=== PATIENT | female | born 1965 | race Caucasian/White ===

== ENCOUNTER 2017-08-08 13:50 | Emergency (ER) | payer BC ==
[2017-08-08 14:26] VITALS: BP 124/86
--- NOTE | 2017-08-08 15:07 | UC ---
Respiratory Complaint HPI - HPI Summary HPI Summary: Pt presents with complaint of 3 weeks of sx. Started with sinus congestion and ear pain. Pt states took decongestant and ibuprofen. Pt states x 1 week with cough, yellow sputum and fatigue. Pt denies fevers (99.1) and chills. Pt has been taking po, decreased appetite. No cavanaugh, vision changes. no OTC meds since yesterday. Pt states she is on Embrel for RA. Pt does smoke tobacco. + sick contact at work and home Pt's medications reviewed this visit - History of Current Complaint Chief Complaint: UCRespiratory Stated Complaint: COUGH Time Seen by Provider: 08/08/17 14:37 Hx Obtained From: Patient Hx Last Menstrual Period: 03/01/16 Onset/Duration: Gradual Onset, Lasting Weeks Timing: Constant Severity Initially: Moderate Character: Cough: Nonproductive Associated Signs And Symptoms: Positive: Fever, URI, Nasal Congestion, Sinus Discomfort - Allergies/Home Medications Allergies/Adverse Reactions: Allergies Allergy/AdvReac Type Severity Reaction Status Date / Time Sulfa Antibiotics Allergy Intermediate Hives Verified 08/08/17 14:17 Methotrexate Allergy Unknown Unknown Verified 08/08/17 14:17 Reaction Details Home Medications: Home Medications Fluticasone-Salmeterol 250-50* [Advair Diskus 250-50*] 1 puff INH BID 08/08/17 [ History Confirmed 08/08/17] PMH/Surg Hx/FS Hx/Imm Hx Previously Healthy: Yes - RA - on Embrel - Surgical History Surgical History: Yes Surgery Procedure, Year, and Place: 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 TUBAL LIGATION - Family History Known Family History: Positive: Hypertension - Social History Alcohol Use: Occasionally Substance Use Type: None Smoking Status (MU): Heavy Every Day Tobacco Smoker Type: Cigarettes Amount Used/How Often: 1/2 PPD - Immunization History Most Recent Influenza Vaccination: FALL 2016 Most Recent Pneumonia Vaccination: THREE YEARS AGO Review of Systems Constitutional: Fever - 99.1 Skin: Negative Eyes: Negative ENT: Nasal Discharge, Sinus Congestion Respiratory: Cough Cardiovascular: Negative All Other Systems Reviewed And Are Negative: Yes Physical Exam Triage Information Reviewed: Yes Appearance: Well-Appearing, No Pain Distress, Well-Nourished Vital Signs: Initial Vital Signs Temp 98.1 F 08/08/17 14:19 Pulse 66 08/08/17 14:19 Resp 16 08/08/17 14:19 BP 124/86 08/08/17 14:19 Pulse Ox 96 08/08/17 14:19 Vital Signs Reviewed: Yes Eye Exam: Normal Eyes: Positive: Conjunctiva Clear ENT Exam: Normal ENT: Positive: Normal ENT inspection, Hearing grossly normal, Pharynx normal, Nasal congestion, Sinus tenderness Dental Exam: Normal Neck exam: Normal Neck: Positive: Supple, Nontender, No Lymphadenopathy Respiratory: Positive: Chest non-tender, Normal breath sounds, No respiratory distress, No accessory muscle use, Wheezing, Other: - intermittent few scattered wheeze, no rhonci Cardiovascular Exam: Normal Cardiovascular: Positive: RRR, No Murmur Abdominal Exam: Normal Abdomen Description: Positive: Nontender, No Organomegaly, Soft Bowel Sounds: Positive: Present Musculoskeletal Exam: Normal Neurological Exam: Normal Neurological: Positive: Alert Psychological Exam: Normal Skin Exam: Normal UC Diagnostic Evaluation - Laboratory O2 Sat by Pulse Oximetry: 96 - Radiology Xray Interpretation: Positive (See Comments) - Order Information: CHEST PA LAT 2 VWS Radiology Interpretation Completed By: ED Physician, Radiologist Respiratory Course/Dx - Course Course Of Treatment: Pt presents with sinus and ear congestion that has now settled into chest. Pt with coarse cough, scattered wheeze. + tobacco use. Pt is on immunosuppressants. will check CXR and flu swab. anticipate abx. mdi. secretion precaution - Differential Dx/Diagnosis Provider Diagnoses: acute bronchitis Discharge - Discharge Plan Condition: Stable Disposition: HOME Prescriptions: Albuterol HFA INHALER* [Ventolin HFA Inhaler*] 1 puff INH Q4H PRN #1 mdi PRN Reason: wheeze Amoxicillin/Clavulanate TAB* [Augmentin TAB 875*] 875 mg PO BID #20 tab Patient Education Materials: Acute Bronchitis (ED) Forms: *Work Release Referrals: Lu Blake MD [Primary Care Provider] - Additional Instructions: - Stay well hydrated. Drink plenty of non-alcoholic, non-caffinated beverages. - After you have been on antibiotics for 2 days - change your toothbrush and your pillowcase. These infections are spread by secretions - do NOT share eating or drinking utensils - clean items you share with other people such as cell phones, computer mouse, TV remote, computer tablets, etc - Alternate ibuprofen (Advil, Motrin) 600mg and Tylenol every 3 hours for pain or fever. Take with food. Do NOT take for more than 4-5 days. - Use your inhaler, 2 puffs every 4 hours today and tomorrow. Then every 4 hours as needed. - Call your doctor to a follow-up appointment. Call your doctor or return with questions or concerns
--- NOTE | 2017-08-08 15:45 | RAD ---
INDICATION: Productive cough. Immunocompromised. History of tobacco use. COMPARISON: June 08, 2012 TECHNIQUE: Dual energy PA and routine lateral views of the chest were obtained. REPORT: Elevated lung volumes and both diffuse mild prominence of the interstitial markings and patchy rarefaction of the mid to upper lung zone interstitial markings. No focal pulmonary lesion, compelling alveolar consolidation, pleural effusion, pneumothorax. The heart, pulmonary vasculature, and mediastinal contours are unremarkable. Unremarkable soft tissue contours and osseous structures. IMPRESSION: Stigmata of obstructive lung disease. No acute pulmonary or cardiac process evident.
== END 2017-08-08 15:45 | disposition home or self-care (01) ==
LOC: UCCORT 13:50
DX: J20.9 Acute bronchitis, unspecified (principal); F17.210 Nicotine dependence, cigarettes, uncomplicated
CPT/HCPCS: 71020; 87502; 99212; G0463

== ENCOUNTER 2018-06-26 08:06 | Emergency (ER) | payer BC ==
--- OUTSIDE RECORDS SUMMARY | 2018-06-26 08:24 | XMS REPORT ---
:1965 External Reference #:[id number] Author Organization [facility] Address [address] [place] [address] Phone [phone] Care Team Providers Name Role Phone Lu Blake MD Primary Care Physician Unavailable Payers Type Date Identification Numbers Payment Provider Subscriber Commercial Policy Number: [id number] [employer]ets Selam Das PayID: [id number] [address] [address] [place] [address] Problems Date Description Provider Status Onset: 06/09/2012 Rheumatoid arthritis Josemanuel Jonas M.D. Active Onset: 06/09/2012 Medications Skilled Nursing (Current) Use Josemanuel Jonas M.D. Active Encounter Onset: 06/09/2012 Chronic pain syndrome Josemanuel Jonas M.D. Active Onset: 08/23/2014 Taking medication BETY Tilley Active Social History Type Date Description Comments Smoking Patient is a current smoker, smokes every day Smoking Light tobacco smoker (10 or fewer cigarettes/day) 1/2 ppd for 25 years Allergies, Adverse Reactions, Alerts Date Description Reaction Status Severity Comments 11/05/2010 Sulfa Allergic asthma, Urticaria active Moderate to Severe 02/22/2011 Methotrexate abnormal liver test even active on 7.5/week Medications Medication Date Status Form Strength Qnty SIG Indications Ordering Provider Enbrel 03/21/ Active Solution 50mg/ml 3.920 inject M05.79 Zsofia Sureclick 2014 Auto-Injec ml subcutaneously Bryan, t 50mg every GERIATRICS PHYSICIAN week, monthly supply please Tramadol HCL 11/05/ Active Tablets 50mg 30tab 1 tab po hs G89.4 Zsofia 2010 s Bryan, GERIATRICS PHYSICIAN M05.79 Multi Vitamin Active Tablets 1 po qd Unknown With Calcium Montelukast Active Tablets 10mg 90ta 1 po qd Unknown Sodium bs Albuterol Sulfate Active Powder puff every 6 Unknown hours as needed Advair Diskus Active Aerosol 250- Inhale One Unknown 50mc puff By g/Do Mouth Twice se A Day Prednisone 08/11/2017 - Hx Tablets 10mg 17ta 3 tabs po Zsofia 06/05/2018 bs daily for 3 Bryan, GERIATRICS PHYSICIAN days, 2 tabs for 3 days, 1 tab for 2 days then d/c. Ketoconazole 01/27/2016 - Hx Cream 2% 15gm use on B37. Zsofia 02/10/2017 lesions 2x 2 Bryan, GERIATRICS PHYSICIAN daily (issue resolved and not using at this time) Gabapentin 06/23/2015 - Hx Capsules 100m 14ca 1 tab by L28. Zsofia 09/22/2015 g ps mouth at 0 Bryan, GERIATRICS PHYSICIAN bedtime Enbrel 08/23/2014 - Hx Soln Prefill 50mg 50mg sq 714. Zsofia 08/23/2014 Syringe /ml every week 0 Bryan, GERIATRICS PHYSICIAN V58.69 Enbrel 08/23/2014 - Hx Solution 50mg/ml 3.920ml inject 714.0 Zsofia Sureclick 03/21/2015 Auto-Inject subcutaneously Bryan, 50mg every week GERIATRICS PHYSICIAN pen V58.69 Leflunomide 06/13/2014 - Hx Tablets 20mg 90tabs 1 by mouth 714.0 Zsofia 09/04/2014 every day on Bryan, GERIATRICS PHYSICIAN Hold Levaquin 06/07/2013 - Hx Tablets 250mg 10tabs Take 1 tab Zsofia 08/23/2013 po qday for Bryan, GERIATRICS PHYSICIAN 10 days Nystatin 05/30/2013 - Hx Suspension [id number] 473ml 10 ml bid; 112.0 Zsofia 08/23/2013 it/ML swish and Bryan, GERIATRICS PHYSICIAN swash. continue 2 days after symptoms resolved Voltaren 03/05/2013 - Hx Gel 1% 1tubes apply to M05.79 Zsofia 09/22/2015 affected Bryan, GERIATRICS PHYSICIAN area bid, prn Nabumetone 03/05/2013 - Hx Tablets 750mg 60tabs Take One M05.79 Zsofia 04/30/2016 Tablet By BETY Adams Mouth Twice A Day Meloxicam 10/17/2012 - Hx Tablets 15mg 30tabs Take One 714.0 Josemanuel 03/05/2013 Tablet By Edie Jonas Mouth Every Day 338.4 Levaquin 06/14/2012 - Hx Tablets 250mg 10tabs one by mouth [place] 10/23/2012 daily for 10 days Edie Jonas Piroxicam 12/08/2011 - Hx Capsules 20mg 30caps po daily with [place] 10/17/2012 food Edie Jonas Prednisone 06/24/2011 - Hx Tablets 5mg 30tabs 1 PO qd [place] 01/27/2012 Edie Jonas Oxaprozin 06/24/2011 - Hx Tablets 600mg 60tabs 1 tab po bid prn [place] 06/09/2012 Edie Jonas Hydroxyzine 06/24/2011 - Hx Tablets 25mg 30tabs 1 every 4 hours Zsofia HCL 01/27/2016 as needed BETY Adams Enbrel 06/24/2011 - Hx Solution 50mg/ml 4units inject the 71 Zsofia Sureclick 08/23/2014 Auto-Inject contents of one 4. nitin Adams (50 mg) 0 BETY subcutaneously once per week as directed by your physician. single - use device. V58.69 Humira Pen 12/29/2010 - Hx Kit 40mg/0.8ML 2units sq every Josemanuel 07/15/2011 other Edie Jonas week Diclofenac Sodium 12/28/2010 - Hx Tablets DR 75mg 60tabs 1 po bid [place] 06/24/2011 Edie Jonas Oxaprozin 11/10/2010 - Hx Tablets 600mg 60tabs Take One Josemanuel 12/28/2010 Tablet By Edie Jonas Mouth Twice A Day Methotrexate 11/05/2010 - Hx Tablets 2.5mg 24tabs 3 tabs 1x Josemanuel 11/05/2010 per week Edie Jonas Methotrexate 11/05/2010 - Hx Tablets 2.5mg 20tabs Take 3 71 [place] 02/22/2011 Tablets 4. Edie Jonas By Mouth 0 Once Weekly Folic Acid 11/05/2010 - Hx Tablets 1mg 30tabs Take One Josemanuel 06/09/2012 Tablet By Edie Jonas Mouth Every Day Singulair - Hx Tablets 10mg 30tabs 1 po qd Unknown 07/15/2011 Azithromycin - Hx Tablets 500mg 7tabs 1 tab qd Unknown 06/09/2012 for 7 days Guaifenesin/Codei - Hx Syrup 100-10mg/5ML 6ounces 3 tsp po Unknown ne 06/09/2012 q 4 h prn Prednisone - Hx Tablets 10mg 30tabs 5tabx Unknown 05/30/2013 2days,4 [id number] s,1clde7x ays,1tabx day. Clarithromycin - Hx Tablets 500mg 28tabs 1 po bid Unknown 12/20/2013 Atrovent HFA - Hx Aerosol 17mcg/Act 12.900gm 2 puffs Unknown 12/20/2013 inhaled qid Prednisone - Hx Tablets 20mg 20tabs 1 tab po Unknown 12/20/2013 qd x 5 days Acidophilus - Hx Tablets every day Unknown 09/22/2015 Levaquin - Hx Tablets one by Unknown 03/21/2015 mouth daily for 10 days Immunizations CPT Code Status Date Vaccine Lot # [id number] Given 09/21/2016 Influenza Virus Vaccine, Quadrivalent, Split [id number] Virus, Im Use [id number] Given 12/18/2014 Pneumonia Vaccine [id number] Given 08/23/2014 Pneumococcal Conjugate Vaccine 13 Valent For [id number] Intramuscular Use 78657 Given 08/23/2014 Flu Vaccine Split Virus Preservative Free For [id number] Indiv 3Yr Older Vital Signs Date Vital Result Comment 06/05/2018 Height 64 inches 5'4" Weight 169.56 lb Heart Rate 64 /min BP Systolic Sitting 120 mmHg BP Diastolic Sitting 76 mmHg Pain Level 5 O2 % BldC Oximetry 98 % BMI (Body Mass Index) 29.1 kg/m2 05/17/2017 Height 64 inches 5'4" Weight 167.00 lb Heart Rate 58 /min BP Systolic Sitting 128 mmHg BP Diastolic Sitting 86 mmHg Respiratory Rate 14 /min Pain Level 0 BMI (Body Mass Index) 28.7 kg/m2 02/11/2017 Height 64 inches 5'4" Weight 168.50 lb Heart Rate 84 /min BP Systolic Sitting 116 mmHg BP Diastolic Sitting 86 mmHg Respiratory Rate 14 /min Body Temperature 98.9 F Pain Level 2 BMI (Body Mass Index) 28.9 kg/m2 09/21/2016 Height 64 inches 5'4" Weight 165.12 lb Heart Rate 88 /min BP Systolic Sitting 120 mmHg BP Diastolic Sitting 70 mmHg Respiratory Rate 14 /min Pain Level 0 BMI (Body Mass Index) 28.3 kg/m2 04/30/2016 Height 64 inches 5'4" Weight 165.38 lb Heart Rate 80 /min BP Systolic Sitting 126 mmHg BP Diastolic Sitting 84 mmHg Respiratory Rate 14 /min Body Temperature 98.3 F Pain Level 3 BMI (Body Mass Index) 28.4 kg/m2 01/27/2016 Height 64 inches 5'4" Weight 166.00 lb Heart Rate 88 /min BP Systolic Sitting 138 mmHg BP Diastolic Sitting 98 mmHg Body Temperature 98.7 F Pain Level 0 BMI (Body Mass Index) 28.5 kg/m2 09/22/2015 Weight 159.00 lb Heart Rate 80 /min 2 BP Systolic Sitting 106 mmHg BP Diastolic Sitting 70 mmHg O2 % BldC Oximetry 95 % 06/23/2015 Height 65.25 inches 5'5.25" Weight 161.12 lb Heart Rate 64 /min BP Systolic Sitting 110 mmHg BP Diastolic Sitting 80 mmHg Respiratory Rate 14 /min Body Temperature 97.9 F tympanic Pain Level 1 BMI (Body Mass Index) 26.6 kg/m2 03/21/2015 Height 65.25 inches 5'5.25" Weight 168.00 lb Heart Rate 84 /min BP Systolic Sitting 114 mmHg BP Diastolic Sitting 80 mmHg Pain Level 0 BMI (Body Mass Index) 27.7 kg/m2 12/18/2014 Height 65.25 inches 5'5.25" Weight 172.00 lb Heart Rate 84 /min BP Systolic Sitting 118 mmHg BP Diastolic Sitting 80 mmHg Pain Level 0 BMI (Body Mass Index) 28.4 kg/m2 08/23/2014 Height 65.25 inches 5'5.25" Weight 168.00 lb Heart Rate 76 /min BP Systolic Sitting 118 mmHg BP Diastolic Sitting 82 mmHg Pain Level 1 BMI (Body Mass Index) 27.7 kg/m2 06/13/2014 Height 65.25 inches 5'5.25" Weight 168.50 lb Heart Rate 66 /min BP Systolic Sitting 104 mmHg BP Diastolic Sitting 72 mmHg Pain Level 0 BMI (Body Mass Index) 27.8 kg/m2 04/30/2014 Heart Rate 60 /min BP Systolic Sitting 112 mmHg BP Diastolic Sitting 72 mmHg Pain Level 0 12/20/2013 Height 64.5 inches 5'4.50" Weight 170.50 lb Heart Rate 76 /min BP Systolic Sitting 110 mmHg BP Diastolic Sitting 88 mmHg BMI (Body Mass Index) 28.8 kg/m2 08/23/2013 Height 64.5 inches 5'4.50" Weight 164.00 lb Heart Rate 78 /min BP Systolic Sitting 105 mmHg BP Diastolic Sitting 78 mmHg BMI (Body Mass Index) 27.7 kg/m2 05/30/2013 Height 64.5 inches 5'4.50" Weight 171.00 lb Heart Rate 74 /min BP Systolic Sitting 100 mmHg BP Diastolic Sitting 78 mmHg BMI (Body Mass Index) 28.9 kg/m2 03/05/2013 Height 64.5 inches 5'4.50" Heart Rate 74 /min BP Systolic Sitting 106 mmHg BP Diastolic Sitting 66 mmHg 10/23/2012 Height 64.5 inches 5'4.50" Weight 165.00 lb Heart Rate 80 /min BP Systolic Sitting 127 mmHg BP Diastolic Sitting 64 mmHg BMI (Body Mass Index) 27.9 kg/m2 06/09/2012 Height 64.5 inches 5'4.50" Weight 164.00 lb Heart Rate 78 /min BP Systolic Sitting 128 mmHg BP Diastolic Sitting 78 mmHg BMI (Body Mass Index) 27.7 kg/m2 01/27/2012 Height 64.5 inches 5'4.50" Heart Rate 77 /min BP Systolic Sitting 123 mmHg BP Diastolic Sitting 73 mmHg 10/26/2011 Height 64.5 inches 5'4.50" Weight 165.00 lb Heart Rate 80 /min BP Systolic Sitting 119 mmHg BP Diastolic Sitting 64 mmHg BMI (Body Mass Index) 27.9 kg/m2 07/15/2011 Height 64.5 inches 5'4.50" Weight 166.00 lb Heart Rate 72 /min BP Systolic Sitting 108 mmHg L BP Diastolic Sitting 60 mmHg L BMI (Body Mass Index) 28.1 kg/m2 04/13/2011 Height 64.5 inches 5'4.50" Weight 164.00 lb BP Systolic 120 mmHg BP Diastolic 80 mmHg BMI (Body Mass Index) 27.7 kg/m2 02/22/2011 Height 64.5 inches 5'4.50" Weight 164.00 lb Heart Rate 76 /min BP Systolic 120 mmHg BP Diastolic 80 mmHg BMI (Body Mass Index) 27.7 kg/m2 12/28/2010 Height 64.5 inches 5'4.50" Weight 166.00 lb Heart Rate 76 /min BP Systolic 118 mmHg BP Diastolic 72 mmHg BMI (Body Mass Index) 28.1 kg/m2 11/05/2010 Height 64.5 inches 5'4.50" Weight 161.00 lb Heart Rate 80 /min BP Systolic 110 mmHg BP Diastolic 70 mmHg BMI (Body Mass Index) 27.2 kg/m2 Results Test Date Test Result H/L Range Note CBC Auto Diff 06/05/2018 White Blood Count 9.3 10^3/uL 3.5-10.8 Red Blood Count 4.30 10^6/uL 4.00-5.40 Hemoglobin 13.6 g/dL 12.0-16.0 Hematocrit 39 % 35-47 Mean Corpuscular Volume 92 fL 80-97 Mean Corpuscular Hemoglobin 32 pg High 27-31 Mean Corpuscular HGB Conc 35 g/dL 31-36 Red Cell Distribution Width 12 % 10.5-15 Platelet Count 252 10^3/uL 150-450 Mean Platelet Volume 9.8 um3 7.4-10.4 Abs Neutrophils 5.9 10^3/uL 1.5-7.7 Abs Lymphocytes 2.2 10^3/uL 1.0-4.8 Abs Monocytes 0.7 10^3/uL 0-0.8 Abs Eosinophils 0.3 10^3/uL 0-0.6 Abs Basophils 0.1 10^3/uL 0-0.2 Abs Nucleated RBC 0 10^3/uL Granulocyte % 64.2 % 38-83 Lymphocyte % 23.4 % Low 25-47 Monocyte % 7.8 % High 0-7 Eosinophil % 3.8 % 0-6 Basophil % 0.8 % 0-2 Nucleated Red Blood Cells % 0.1 Comp Metabolic Panel 06/05/2018 Sodium 138 mmol/L 135-145 Potassium 4.2 mmol/L 3.5-5.0 Chloride 104 mmol/L 101-111 Co2 Carbon Dioxide 27 mmol/L 22-32 Anion Gap 7 mmol/L 2-11 Glucose 148 mg/dL High 70-100 Blood Urea Nitrogen 13 mg/dL 6-24 Creatinine 0.70 mg/dL 0.51-0.95 BUN/Creatinine Ratio 18.6 8-20 Calcium 9.6 mg/dL 8.6-10.3 Total Protein 6.4 g/dL 6.4-8.9 Albumin 4.2 g/dL 3.2-5.2 Globulin 2.2 g/dL 2-4 Albumin/Globulin Ratio 1.9 1-3 Total Bilirubin 0.30 mg/dL 0.2-1.0 Alkaline Phosphatase 72 U/L 34-104 Alt 38 U/L 7-52 Ast 22 U/L 13-39 Egfr Non- 88.2 >60 Egfr 106.7 >60 1 Laboratory test finding 06/05/2018 C Reactive Protein 7.06 mg/L <8.01 2 Erythrocyte Sed Rate 24 mm/Hr 0-30 3 CBC Auto Diff 08/08/2017 White Blood Count 9.0 10^3/uL 3.5-10.8 Red Blood Count 4.38 10^6/uL 4.0-5.4 Hemoglobin 13.7 g/dL 12.0-16.0 Hematocrit 40 % 35-47 Mean Corpuscular Volume 92 fL 80-97 Mean Corpuscular Hemoglobin 31 pg 27-31 Mean Corpuscular HGB Conc 34 g/dL 31-36 Red Cell Distribution Width 12 % 10.5-15 Platelet Count 268 10^3/uL 150-450 Mean Platelet Volume 10 um3 7.4-10.4 Abs Neutrophils 5.9 10^3/uL 1.5-7.7 Abs Lymphocytes 2.2 10^3/uL 1.0-4.8 Abs Monocytes 0.7 10^3/uL 0-0.8 Abs Eosinophils 0.2 10^3/uL 0-0.6 Abs Basophils 0.1 10^3/uL 0-0.2 Abs Nucleated RBC 0.01 10^3/uL Granulocyte % 65.0 % 38-83 Lymphocyte % 24.2 % Low 25-47 Monocyte % 8.3 % 1-9 Eosinophil % 1.8 % 0-6 Basophil % 0.7 % 0-2 Nucleated Red Blood Cells % 0.1 Comp Metabolic Panel 08/08/2017 Sodium 139 mmol/L 133-145 Potassium 3.8 mmol/L 3.5-5.0 Chloride 103 mmol/L 101-111 Co2 Carbon Dioxide 29 mmol/L 22-32 Anion Gap 7 mmol/L 2-11 Glucose 112 mg/dL High 70-100 Blood Urea Nitrogen 13 mg/dL 6-24 Creatinine 0.85 mg/dL 0.51-0.95 BUN/Creatinine Ratio 15.3 8-20 Calcium 9.8 mg/dL 8.6-10.3 Total Protein 6.8 g/dL 6.4-8.9 Albumin 4.2 g/dL 3.2-5.2 Globulin 2.6 g/dL 2-4 Albumin/Globulin Ratio 1.6 1-3 Total Bilirubin 0.30 mg/dL 0.2-1.0 Alkaline Phosphatase 65 U/L 34-104 Alt 57 U/L High 7-52 Ast 34 U/L 13-39 Egfr Non- 70.8 >60 Egfr 91.0 >60 4 Laboratory test finding 08/08/2017 C Reactive Protein 6.84 mg/L High < 5.00 5 Erythrocyte Sed Rate 27 mm/Hr 0-30 6 CBC Auto Diff 05/06/2017 White Blood Count 9.7 10^3/uL 3.5-10.8 7 Red Blood Count 4.43 10^6/uL 4.0-5.4 7 Hemoglobin 14.1 g/dL 12.0-16.0 7 Hematocrit 41 % 35-47 7 Mean Corpuscular Volume 93 fL 80-97 7 Mean Corpuscular Hemoglobin 32 pg High 27-31 7 Mean Corpuscular HGB Conc 34 g/dL 31-36 7 Red Cell Distribution Width 12 % 10.5-15 7 Platelet Count 216 10^3/uL 150-450 7 Mean Platelet Volume 11 um3 High 7.4-10.4 7 Abs Neutrophils 6.1 10^3/uL 1.5-7.7 7 Abs Lymphocytes 2.3 10^3/uL 1.0-4.8 7 Abs Monocytes 0.9 10^3/uL High 0-0.8 7 Abs Eosinophils 0.3 10^3/uL 0-0.6 7 Abs Basophils 0.1 10^3/uL 0-0.2 7 Abs Nucleated RBC 0 10^3/uL 7 Granulocyte % 63.2 % 38-83 7 Lymphocyte % 24.2 % Low 25-47 7 Monocyte % 8.8 % 1-9 7 Eosinophil % 3.1 % 0-6 7 Basophil % 0.7 % 0-2 7 Nucleated Red Blood Cells % 0 7 Comp Metabolic Panel 05/06/2017 Sodium 135 mmol/L 133-145 7 Potassium 4.3 mmol/L 3.5-5.0 7 Chloride 103 mmol/L 101-111 7 Co2 Carbon Dioxide 26 mmol/L 22-32 7 Anion Gap 6 mmol/L 2-11 7 Glucose 140 mg/dL High 70-100 7 Blood Urea Nitrogen 16 mg/dL 6-24 7 Creatinine 0.73 mg/dL 0.51-0.95 7 BUN/Creatinine Ratio 21.9 High 8-20 7 Calcium 9.6 mg/dL 8.6-10.3 7 Total Protein 6.8 g/dL 6.4-8.9 7 Albumin 4.2 g/dL 3.2-5.2 7 Globulin 2.6 g/dL 2-4 7 Albumin/Globulin Ratio 1.6 1-3 7 Total Bilirubin 0.50 mg/dL 0.2-1.0 7 Alkaline Phosphatase 59 U/L 34-104 7 Alt 89 U/L High 7-52 7 Ast 39 U/L 13-39 7 Egfr Non- 84.4 >60 7 Egfr 108.5 >60 7, 8 Laboratory test finding 05/06/2017 C Reactive Protein 4.31 mg/L < 5.00 7 , 9 Erythrocyte Sed Rate 17 mm/Hr 0-30 7, 10 CBC W/Auto Diff 02/01/2017 White Blood Count 12.6 10^3/uL High 3.5-10.8 Red Blood Count 4.46 10^6/uL 4.0-5.4 Hemoglobin 13.8 g/dL 12.0-16.0 Hematocrit 41 % 35-47 Mean Corpuscular Volume 91 fL 80-97 Mean Corpuscular Hemoglobin 31 pg 27-31 Mean Corpuscular HGB Conc 34 g/dL 31-36 Red Cell Distribution Width 13 % 10.5-15 Platelet Count 219 10^3/uL 150-450 Mean Platelet Volume 11 um3 High 7.4-10.4 Abs Neutrophils 9.0 10^3/uL High 1.5-7.7 Abs Lymphocytes 2.3 10^3/uL 1.0-4.8 Abs Monocytes 0.9 10^3/uL High 0-0.8 Abs Eosinophils 0.3 10^3/uL 0-0.6 Abs Basophils 0.1 10^3/uL 0-0.2 Abs Nucleated RBC 0 10^3/uL Granulocyte % 71.9 % 38-83 Lymphocyte % 18.1 % Low 25-47 Monocyte % 6.9 % 1-9 Eosinophil % 2.1 % 0-6 Basophil % 1.0 % 0-2 Nucleated Red Blood Cells % 0 CMP Panel 02/01/2017 Sodium 135 mmol/L 133-145 Potassium 3.8 mmol/L 3.5-5.0 Chloride 102 mmol/L 101-111 Co2 Carbon Dioxide 25 mmol/L 22-32 Anion Gap 8 mmol/L 2-11 Glucose 153 mg/dL High 70-100 Blood Urea Nitrogen 14 mg/dL 6-24 Creatinine 0.63 mg/dL 0.51-0.95 BUN/Creatinine Ratio 22.2 High 8-20 Calcium 9.5 mg/dL 8.6-10.3 Total Protein 6.7 g/dL 6.4-8.9 Albumin 4.3 g/dL 3.2-5.2 Globulin 2.4 g/dL 2-4 Albumin/Globulin Ratio 1.8 1-3 Total Bilirubin 0.50 mg/dL 0.2-1.0 Alkaline Phosphatase 64 U/L 34-104 Alt 27 U/L 7-52 Ast 19 U/L 13-39 Egfr Non- 100.0 >60 Egfr 128.6 >60 11 Laboratory test finding 02/01/2017 C Reactive Protein 5.56 mg/L High < 5.00 12 Erythrocyte Sed Rate 17 mm/Hr 0-30 13 CBC Auto Diff 09/20/2016 White Blood Count 9.7 10^3/uL 3.5-10.8 Red Blood Count 4.60 10^6/uL 4.0-5.4 Hemoglobin 14.1 g/dL 12.0-16.0 Hematocrit 42 % 35-47 Mean Corpuscular Volume 91 fL 80-97 Mean Corpuscular Hemoglobin 31 pg 27-31 Mean Corpuscular HGB Conc 34 g/dL 31-36 Red Cell Distribution Width 12 % 10.5-15 Platelet Count 239 10^3/uL 150-450 Mean Platelet Volume 11 um3 High 7.4-10.4 Abs Neutrophils 5.5 10^3/uL 1.5-7.7 Abs Lymphocytes 3.0 10^3/uL 1.0-4.8 Abs Monocytes 0.8 10^3/uL 0-0.8 Abs Eosinophils 0.2 10^3/uL 0-0.6 Abs Basophils 0.1 10^3/uL 0-0.2 Abs Nucleated RBC 0.01 10^3/uL Granulocyte % 57.1 % 38-83 Lymphocyte % 30.7 % 25-47 Monocyte % 8.7 % 1-9 Eosinophil % 2.5 % 0-6 Basophil % 1.0 % 0-2 Nucleated Red Blood Cells % 0.1 Comp Metabolic Panel 09/20/2016 Sodium 136 mmol/L 133-145 Potassium 4.2 mmol/L 3.5-5.0 Chloride 102 mmol/L 101-111 Co2 Carbon Dioxide 28 mmol/L 22-32 Anion Gap 6 mmol/L 2-11 Glucose 95 mg/dL 70-100 Blood Urea Nitrogen 18 mg/dL 6-24 Creatinine 0.76 mg/dL 0.51-0.95 BUN/Creatinine Ratio 23.7 High 8-20 Calcium 10.1 mg/dL 8.6-10.3 Total Protein 7.0 g/dL 6.4-8.9 Albumin 4.6 g/dL 3.2-5.2 Globulin 2.4 g/dL 2-4 Albumin/Globulin Ratio 1.9 1-3 Total Bilirubin 0.50 mg/dL 0.2-1.0 Alkaline Phosphatase 59 U/L 34-104 Alt 79 U/L High 7-52 Ast 51 U/L High 13-39 Egfr Non- 80.6 >60 Egfr 103.6 >60 14 Laboratory test finding 09/20/2016 C Reactive Protein 4.77 mg/L < 5.00 15 Erythrocyte Sed Rate 15 mm/Hr 0-30 16 CBC W/Auto Diff 04/26/2016 White Blood Count 11.3 10^3/uL High 3.5-10.8 Red Blood Count 4.22 10^6/uL 4.0-5.4 Hemoglobin 13.2 g/dL 12.0-16.0 Hematocrit 39 % 35-47 Mean Corpuscular Volume 92 fL 80-97 Mean Corpuscular Hemoglobin 31 pg 27-31 Mean Corpuscular HGB Conc 34 g/dL 31-36 Red Cell Distribution Width 13 % 10.5-15 Platelet Count 288 10^3/uL 150-450 Mean Platelet Volume 11 um3 High 7.4-10.4 Abs Neutrophils 6.3 10^3/uL 1.5-7.7 Abs Lymphocytes 3.6 10^3/uL 1.0-4.8 Abs Monocytes 0.9 10^3/uL High 0-0.8 Abs Eosinophils 0.3 10^3/uL 0-0.6 Abs Basophils 0.1 10^3/uL 0-0.2 Abs Nucleated RBC 0.01 10^3/uL Granulocyte % 55.9 % 38-83 Lymphocyte % 31.8 % 25-47 Monocyte % 8.0 % 1-9 Eosinophil % 3.0 % 0-6 Basophil % 1.3 % 0-2 Nucleated Red Blood Cells % 0.1 CMP Panel 04/26/2016 Sodium 137 mmol/L 133-145 Potassium 3.6 mmol/L 3.5-5.0 Chloride 104 mmol/L 101-111 Co2 Carbon Dioxide 26 mmol/L 22-32 Anion Gap 7 mmol/L 2-11 Glucose 102 mg/dL High 70-100 Blood Urea Nitrogen 20 mg/dL 6-24 Creatinine 0.86 mg/dL 0.51-0.95 BUN/Creatinine Ratio 23.3 High 8-20 Calcium 9.6 mg/dL 8.6-10.3 Total Protein 6.6 g/dL 6.4-8.9 Albumin 4.2 g/dL 3.2-5.2 Globulin 2.4 g/dL 2-4 Albumin/Globulin Ratio 1.8 1-3 Total Bilirubin 0.20 mg/dL 0.2-1.0 Alkaline Phosphatase 69 U/L 34-104 Alt 35 U/L 7-52 Ast 23 U/L 13-39 Egfr Non- 70.1 >60 Egfr 90.2 >60 17 Laboratory test finding 04/26/2016 C Reactive Protein 2.20 mg/L < 5.00 18 Erythrocyte Sed Rate 12 mm/Hr 0-14 19 CBC Auto Diff 09/16/2015 White Blood Count 8.5 10^3/uL 3.5-10.8 Red Blood Count 4.51 10^6/uL 4.0-5.4 Hemoglobin 14.2 g/dL 12.0-16.0 Hematocrit 42 % 35-47 Mean Corpuscular Volume 93 fL 80-97 Mean Corpuscular Hemoglobin 31 pg 27-31 Mean Corpuscular HGB Conc 34 g/dL 31-36 Red Cell Distribution Width 12 % 10.5-15 Platelet Count 258 10^3/uL 150-450 Mean Platelet Volume 10 um3 7.4-10.4 Abs Neutrophils 5.6 10^3/uL 1.5-7.7 Abs Lymphocytes 2.0 10^3/uL 1.0-4.8 Abs Monocytes 0.6 10^3/uL 0-0.8 Abs Eosinophils 0.2 10^3/uL 0-0.6 Abs Basophils 0.1 10^3/uL 0-0.2 Abs Nucleated RBC 0 10^3/uL Granulocyte % 65.9 % 38-83 Lymphocyte % 23.6 % Low 25-47 Monocyte % 6.9 % 1-9 Eosinophil % 2.8 % 0-6 Basophil % 0.8 % 0-2 Nucleated Red Blood Cells % 0 Comp Metabolic Panel 09/16/2015 Sodium 139 mmol/L 133-145 Potassium 3.9 mmol/L 3.5-5.0 Chloride 104 mmol/L 101-111 Co2 Carbon Dioxide 28 mmol/L 22-32 Anion Gap 7 mmol/L 2-11 Glucose 99 mg/dL 70-100 Blood Urea Nitrogen 14 mg/dL 6-24 Creatinine 0.79 mg/dL 0.51-0.95 BUN/Creatinine Ratio 17.7 8-20 Calcium 10.0 mg/dL 8.6-10.3 Total Protein 6.8 g/dL 6.4-8.9 Albumin 4.5 g/dL 3.2-5.2 Globulin 2.3 g/dL 2-4 Albumin/Globulin Ratio 2.0 1-3 Total Bilirubin 0.40 mg/dL 0.2-1.0 Alkaline Phosphatase 60 U/L 34-104 Alt 24 U/L 7-52 Ast 19 U/L 13-39 Egfr Non- 77.4 >60 Egfr 99.5 >60 20 Laboratory test finding 09/16/2015 C Reactive Protein 3.13 mg/L < 5.00 21 Erythrocyte Sed Rate 22 mm/Hr High 0-14 CBC Auto Diff 04/15/2015 White Blood Count 9.1 10^3/uL 4.8-10.8 Red Blood Count 4.23 10^6/uL 4.0-5.4 Hemoglobin 13.3 g/dL 12.0-16.0 Hematocrit 40 % 35-47 Mean Corpuscular Volume 95 fL 80-97 Mean Corpuscular Hemoglobin 32 pg High 27-31 Mean Corpuscular HGB Conc 33 g/dL 31-36 Red Cell Distribution Width 13 % 10.5-15 Platelet Count 210 10^3/uL 150-450 Mean Platelet Volume 11 um3 High 7.4-10.4 Abs Neutrophils 5.3 10^3/uL 1.5-7.7 Abs Lymphocytes 2.7 10^3/uL 1.0-4.8 Abs Monocytes 0.7 10^3/uL 0-0.8 Abs Eosinophils 0.3 10^3/uL 0-0.6 Abs Basophils 0.1 10^3/uL 0-0.2 Abs Nucleated RBC 0 10^3/uL Granulocyte % 57.5 % 38-83 Lymphocyte % 30.0 % 25-47 Monocyte % 8.1 % 1-9 Eosinophil % 3.4 % 0-6 Basophil % 1.0 % 0-2 Nucleated Red Blood Cells % 0 Comp Metabolic Panel 04/15/2015 Sodium 136 mmol/L 133-145 Potassium 3.7 mmol/L 3.5-5.0 Chloride 104 mmol/L 101-111 Co2 Carbon Dioxide 26 mmol/L 22-32 Anion Gap 6 mmol/L 2-11 Glucose 103 mg/dL High 70-100 Blood Urea Nitrogen 16 mg/dL 6-24 Creatinine 0.82 mg/dL 0.51-0.95 BUN/Creatinine Ratio 19.5 8-20 Calcium 8.9 mg/dL 8.6-10.3 Total Protein 6.2 g/dL Low 6.4-8.9 Albumin 4.0 g/dL 3.2-5.2 Globulin 2.2 g/dL 2-4 Albumin/Globulin Ratio 1.8 1-3 Total Bilirubin 0.30 mg/dL 0.2-1.0 Alkaline Phosphatase 61 U/L 34-104 Alt 25 U/L 7-52 Ast 18 U/L 13-39 Egfr Non- 74.4 >60 Egfr 95.7 >60 22 Laboratory test finding 04/15/2015 C Reactive Protein 2.60 mg/L < 5.00 23 Erythrocyte Sed Rate 13 mm/Hr 0-14 CMP Panel 12/18/2014 Sodium 134 mmol/L 133-145 Potassium 3.6 mmol/L 3.5-5.0 Chloride 100 mmol/L Low 101-111 Co2 Carbon Dioxide 27 mmol/L 22-32 Anion Gap 7 mmol/L 2-11 Glucose 128 mg/dL High 70-100 Blood Urea Nitrogen 15 mg/dL 6-24 Creatinine 0.77 mg/dL 0.51-0.95 BUN/Creatinine Ratio 19.5 8-20 Calcium 9.2 mg/dL 8.6-10.3 Total Protein 6.2 g/dL Low 6.4-8.9 Albumin 4.1 g/dL 3.2-5.2 Globulin 2.1 g/dL 2-4 Albumin/Globulin Ratio 2.0 1-3 Total Bilirubin 0.30 mg/dL 0.2-1.0 Alkaline Phosphatase 64 U/L 34-104 Alt 38 U/L 7-52 Ast 21 U/L 13-39 Egfr Non- 80.0 >60 Egfr 102.9 >60 24 Laboratory test finding 12/18/2014 Erythrocyte Sed Rate 13 mm/Hr 0-14 Laboratory test finding 12/18/2014 C Reactive Protein 5.58 mg/L High < 5.00 25 CBC Auto Diff 12/18/2014 White Blood Count 12.6 10^3/uL High 4.8-10.8 Red Blood Count 4.00 10^6/uL 4.0-5.4 Hemoglobin 13.1 g/dL 12.0-16.0 Hematocrit 38 % 35-47 Mean Corpuscular Volume 95 fL 80-97 Mean Corpuscular Hemoglobin 33 pg High 27-31 Mean Corpuscular HGB Conc 35 g/dL 31-36 Red Cell Distribution Width 12 % 10.5-15 Platelet Count 261 10^3/uL 150-450 Mean Platelet Volume 10 um3 7.4-10.4 Abs Neutrophils 8.5 10^3/uL High 1.5-7.7 Abs Lymphocytes 2.9 10^3/uL 1.0-4.8 Abs Monocytes 0.8 10^3/uL 0-0.8 Abs Eosinophils 0.3 10^3/uL 0-0.6 Abs Basophils 0.1 10^3/uL 0-0.2 Abs Nucleated RBC 0.06 10^3/uL Granulocyte % 67.5 % 38-83 Lymphocyte % 23.0 % Low 25-47 Monocyte % 6.4 % 1-9 Eosinophil % 2.6 % 0-6 Basophil % 0.5 % 0-2 Nucleated Red Blood Cells % 0.4 CBC Auto Diff 09/17/2014 White Blood Count 12.1 10^3/uL High 4.8-10.8 26 Red Blood Count 4.39 10^6/uL 4.0-5.4 26 Hemoglobin 13.7 g/dL 12.0-16.0 26 Hematocrit 41 % 35-47 26 Mean Corpuscular Volume 92 fL 80-97 26 Mean Corpuscular Hemoglobin 31 pg 27-31 26 Mean Corpuscular HGB Conc 34 g/dL 31-36 26 Red Cell Distribution Width 12 % 10.5-15 26 Platelet Count 230 10^3/uL 150-450 26 Mean Platelet Volume 11 um3 High 7.4-10.4 26 Abs Neutrophils 8.2 10^3/uL High 1.5-7.7 26 Abs Lymphocytes 2.6 10^3/uL 1.0-4.8 26 Abs Monocytes 0.8 10^3/uL 0-0.8 26 Abs Eosinophils 0.3 10^3/uL 0-0.6 26 Abs Basophils 0.1 10^3/uL 0-0.2 26 Abs Nucleated RBC 0 10^3/uL 26 Granulocyte % 67.8 % 38-83 26 Lymphocyte % 21.9 % Low 25-47 26 Monocyte % 6.7 % 1-9 26 Eosinophil % 2.7 % 0-6 26 Basophil % 0.9 % 0-2 26 Nucleated Red Blood Cells % 0 26 Laboratory test finding 09/17/2014 Erythrocyte Sed Rate 18 mm/Hr High 0- 14 26 Comp Metabolic Panel 09/17/2014 Sodium 135 mmol/L 133-145 26 Potassium 3.9 mmol/L 3.5-5.0 26 Chloride 104 mmol/L 101-111 26 Co2 Carbon Dioxide 26 mmol/L 22-32 26 Anion Gap 5 mmol/L 2-11 26 Glucose 143 mg/dL High 70-100 26 Blood Urea Nitrogen 12 mg/dL 6-24 26 Creatinine 0.77 mg/dL 0.51-0.95 26 BUN/Creatinine Ratio 15.6 8-20 26 Calcium 9.9 mg/dL 8.6-10.3 26 Total Protein 6.6 g/dL 6.4-8.9 26 Albumin 4.3 g/dL 3.2-5.2 26 Globulin 2.3 g/dL 2-4 26 Albumin/Globulin Ratio 1.9 1-3 26 Total Bilirubin 0.40 mg/dL 0.2-1.0 26 Alkaline Phosphatase 62 U/L 34-104 26 Alt 74 U/L High 7-52 26 Ast 39 U/L 13-39 26 Egfr Non- 80.0 >60 26 Egfr 102.9 >60 26, 27 Laboratory test finding 09/17/2014 C Reactive Protein 6.31 mg/L High < 5.00 26, 28 CMP Panel 08/23/2014 Albumin <pending> Alt - SGPT <pending> Calcium <pending> Carbon Dioxide <pending> Chloride <pending> Z# Creatinine <pending> Glucose Serum <pending> Alkaline Phosphatase <pending> Potassium <pending> Protein Total <pending> Sodium <pending> Ast - Sgot <pending> BUN - Urea Nitrogen <pending> CBC W/Auto Diff 08/23/2014 White Blood Count <pending> RBC Red Blood Count <pending> Hemoglobin <pending> Hematocrit <pending> MCV (Corpuscular Volume) <pending> MCH (Corpuscular Hemoglobin) <pending> MCHC (Corpuscular Hemog Conc) <pending> RDW <pending> Platelet Count <pending> MPV <pending> Neutrophils <pending> Bands <pending> Lymphocytes <pending> Monocytes <pending> Eosinophils <pending> Basophils <pending> Absolute Basophil <pending> Absolute Eosinophil <pending> Absolute Lymphocyte <pending> Absolute Monocytes <pending> Absolute Neutrophils <pending> Laboratory test finding 08/23/2014 CRP C-Reactive Protein <pending> Esr Sedimentation Rate <pending> Laboratory test finding 06/12/2014 Erythrocyte Sed Rate 20 mm/Hr High 0- 14 Comp Metabolic Panel 06/12/2014 Sodium 136 mmol/L 133-145 Potassium 4.2 mmol/L 3.7-5.6 Chloride 105 mmol/L 101-111 Co2 Carbon Dioxide 25 mmol/L 22-32 Anion Gap 6 mmol/L 2-11 Glucose 113 mg/dL High 70-100 Blood Urea Nitrogen 13 mg/dL 6-24 Creatinine 0.80 mg/dL 0.51-0.95 BUN/Creatinine Ratio 16.3 8-20 Calcium 9.4 mg/dL 8.6-10.3 Total Protein 6.5 g/dL 6.4-8.9 Albumin 4.2 g/dL 3.2-5.2 Globulin 2.3 g/dL 2-4 Albumin/Globulin Ratio 1.8 1-3 Total Bilirubin 0.40 mg/dL 0.2-1.0 Alkaline Phosphatase 68 U/L 34-104 Alt 48 U/L 7-52 Ast 32 U/L 13-39 Egfr Non- 76.9 >60 Egfr 98.9 >60 29 Laboratory test finding 06/12/2014 CRP High Sensitivity 6.93 mg/L 30 CBC With Manual Diff 06/12/2014 White Blood Count 11.1 10^3/uL High 4.8- 10.8 Red Blood Count 4.20 10^6/uL 4.0-5.4 Hemoglobin 13.4 g/dL 12.0-16.0 Hematocrit 39 % 35-47 Mean Corpuscular Volume 93 fL 80-97 Mean Corpuscular Hemoglobin 32 pg High 27-31 Mean Corpuscular HGB Conc 34 g/dL 31-36 Red Cell Distribution Width 12 % 10.5-15 Platelet Count 227 10^3/uL 150-450 Mean Platelet Volume 10 um3 7.4-10.4 Abs Neutrophils 7.2 10^3/uL 1.5-7.7 Abs Lymphocytes 2.5 10^3/uL 1.0-4.8 Abs Monocytes 0.7 10^3/uL 0-0.8 Abs Eosinophils 0.6 10^3/uL 0-0.6 Abs Basophils 0.1 10^3/uL 0-0.2 Abs Nucleated RBC 0.01 10^3/uL Neutrophil % 73 % 38-83 Lymphocytes % 14 % Low 25-47 Monocytes % 6 % 0-13 Eosinophils % 6 % 0-6 Basophil % 1 % 0-2 Hypochromasia 1+ CBC Auto Diff 02/22/2014 White Blood Count 10.9 10^3/uL High 4.8-10.8 Red Blood Count 4.18 10^6/uL 4.0-5.4 Hemoglobin 13.5 g/dL 12.0-16.0 Hematocrit 39 % 35-47 Mean Corpuscular Volume 93 fL 80-97 Mean Corpuscular Hemoglobin 32 pg High 27-31 Mean Corpuscular HGB Conc 35 g/dL 31-36 Red Cell Distribution Width 12 % 10.5-15 Platelet Count 221 10^3/uL 150-450 Mean Platelet Volume 10 um3 7.4-10.4 Abs Neutrophils 6.5 10^3/uL 1.5-7.7 Abs Lymphocytes 3.2 10^3/uL 1.0-4.8 Abs Monocytes 0.9 10^3/uL High 0-0.8 Abs Eosinophils 0.3 10^3/uL 0-0.6 Abs Basophils 0.1 10^3/uL 0-0.2 Abs Nucleated RBC 0.01 10^3/uL Granulocyte % 59.6 % 38-83 Lymphocyte % 29.0 % 25-47 Monocyte % 8.0 % 1-9 Eosinophil % 2.5 % 0-6 Basophil % 0.9 % 0-2 Nucleated Red Blood Cells % 0.1 Laboratory test finding 02/22/2014 Erythrocyte Sed Rate 13 mm/Hr 0-14 Comp Metabolic Panel 02/22/2014 Sodium 137 mmol/L 133-145 Potassium 3.9 mmol/L 3.7-5.6 Chloride 104 mmol/L 101-111 Co2 Carbon Dioxide 26 mmol/L 22-32 Anion Gap 7 mmol/L 2-11 Glucose 108 mg/dL High 70-100 Blood Urea Nitrogen 12 mg/dL 6-24 Creatinine 0.78 mg/dL 0.51-0.95 BUN/Creatinine Ratio 15.4 8-20 Calcium 9.8 mg/dL 8.6-10.3 Total Protein 6.5 g/dL 6.4-8.9 Albumin 4.2 g/dL 3.2-5.2 Globulin 2.3 g/dL 2-4 Albumin/Globulin Ratio 1.8 1-3 Total Bilirubin 0.30 mg/dL 0.2-1.0 Alkaline Phosphatase 61 U/L 34-104 Alt 30 U/L 7-52 Ast 20 U/L 13-39 Egfr Non- 79.2 >60 Egfr 101.8 >60 31 Laboratory test finding 02/22/2014 C Reactive Protein 2.25 mg/L < 5.00 32 CMP Panel 12/17/2013 Sodium 138 mmol/L 133-145 Potassium 3.7 mmol/L 3.7-5.6 Chloride 107 mmol/L 101-111 Co2 Carbon Dioxide 25 mmol/L 22-32 Anion Gap 6 mmol/L 2-11 Glucose 119 mg/dL High 70-100 Blood Urea Nitrogen 20 mg/dL 6-24 Creatinine 0.78 mg/dL 0.51-0.95 BUN/Creatinine Ratio 25.6 High 8-20 Calcium 9.2 mg/dL 8.6-10.3 Total Protein 6.0 g/dL Low 6.4-8.9 Albumin 4.1 g/dL 3.2-5.2 Globulin 1.9 g/dL Low 2-4 Albumin/Globulin Ratio 2.2 1-3 Total Bilirubin 0.20 mg/dL 0.2-1.0 Alkaline Phosphatase 76 U/L 34-104 Alt 25 U/L 7-52 Ast 17 U/L 13-39 Egfr Non- 79.2 >60 Egfr 101.8 >60 33 CBC W/Auto Diff 12/17/2013 White Blood Count 10.2 10^3/uL 4.8-10.8 Red Blood Count 4.04 10^6/uL 4.0-5.4 Hemoglobin 13.1 g/dL 12.0-16.0 Hematocrit 37 % 35-47 Mean Corpuscular Volume 92 fL 80-97 Mean Corpuscular Hemoglobin 32 pg High 27-31 Mean Corpuscular HGB Conc 35 g/dL 31-36 Red Cell Distribution Width 12 % 10.5-15 Platelet Count 194 10^3/uL 150-450 Mean Platelet Volume 11 um3 High 7.4-10.4 Abs Neutrophils 6.2 10^3/uL 1.5-7.7 Abs Lymphocytes 2.8 10^3/uL 1.0-4.8 Abs Monocytes 0.8 10^3/uL 0-0.8 Abs Eosinophils 0.3 10^3/uL 0-0.6 Abs Basophils 0.1 10^3/uL 0-0.2 Abs Nucleated RBC 0.01 10^3/uL Granulocyte % 60.8 % 38-83 Lymphocyte % 27.6 % 25-47 Monocyte % 8.0 % 1-9 Eosinophil % 2.7 % 0-6 Basophil % 0.9 % 0-2 Nucleated Red Blood Cells % 0.1 Laboratory test finding 12/17/2013 C Reactive Protein 2.11 mg/L < 5.00 34 Erythrocyte Sed Rate 11 mm/Hr 0-14 Comp Metabolic Panel 09/12/2013 Sodium 134 mmol/L 133-145 Potassium 3.7 mmol/L 3.5-5.0 Chloride 102 mmol/L 101-111 Co2 Carbon Dioxide 25.0 mmol/L 22-32 Anion Gap 7.0 mmol/L 2-11 Glucose 125 mg/dL High 70-100 Blood Urea Nitrogen 13 mg/dL 6-24 Creatinine 0.70 mg/dL 0.50-1.40 BUN/Creatinine Ratio 18.6 8-20 Calcium 9.5 mg/dL 8.1-9.9 Total Protein 6.6 g/dL 6.2-8.1 Albumin 3.8 g/dL 3.6-5.4 Globulin 2.8 g/dL 2-4 Albumin/Globulin Ratio 1.4 1-3 Total Bilirubin 0.7 mg/dL 0.4-1.5 Alkaline Phosphatase 61 U/L 30-110 Alt 36 U/L 14-54 Ast 28 U/L 12-42 Egfr Non- 89.7 >60 Egfr 115.4 >60 35 Laboratory test 09/12/2013 C Reactive Protein 0.6 mg/dL High Less than 0.5 finding CBC Auto Diff 09/12/2013 White Blood Count 8.0 10^3/uL 4.8-10.8 Red Blood Count 4.31 10^6/uL 4.0-5.4 Hemoglobin 13.7 g/dL 12.0-16.0 Hematocrit 39 % 35-47 Mean Corpuscular Volume 91 fL 80-97 Mean Corpuscular Hemoglobin 32 pg High 27-31 Mean Corpuscular HGB Conc 35 g/dL 31-36 Red Cell Distribution Width 13 % 10.5-15 Platelet Count 251 10^3/uL 150-450 Mean Platelet Volume 11 um3 High 7.4-10.4 Abs Neutrophils 5.1 10^3/uL 1.5-7.7 Abs Lymphocytes 1.9 10^3/uL 1.0-4.8 Abs Monocytes 0.7 10^3/uL 0-0.8 Abs Eosinophils 0.3 10^3/uL 0-0.6 Abs Basophils 0.1 10^3/uL 0-0.2 Abs Nucleated RBC 0.01 10^3/uL Granulocyte % 63.9 % 38-83 Lymphocyte % 23.1 % Low 25-47 Monocyte % 9.1 % High 1-9 Eosinophil % 3.1 % 0-6 Basophil % 0.8 % 0-2 Nucleated Red Blood Cells % 0.1 Laboratory test finding 09/12/2013 Erythrocyte Sed Rate 17 mm/Hr High 0- 14 Comp Metabolic Panel 05/07/2013 Sodium 138 mmol/L 133-145 Potassium 4.1 mmol/L 3.5-5.0 Chloride 106 mmol/L 101-111 Co2 Carbon Dioxide 27.0 mmol/L 22-32 Anion Gap 5.0 mmol/L 2-11 Glucose 144 mg/dL High 70-100 Blood Urea Nitrogen 15 mg/dL 6-24 Creatinine 0.70 mg/dL 0.50-1.40 BUN/Creatinine Ratio 21.4 High 8-20 Calcium 9.9 mg/dL 8.1-9.9 Total Protein 6.9 g/dL 6.2-8.1 Albumin 4.0 g/dL 3.6-5.4 Globulin 2.9 g/dL 2-4 Albumin/Globulin Ratio 1.4 1-3 Total Bilirubin 0.7 mg/dL 0.4-1.5 Alkaline Phosphatase 62 U/L 30-110 Alt 39 U/L 14-54 Ast 24 U/L 12-42 Egfr Non- 90.1 >60 Egfr 115.9 >60 36 CBC Auto Diff 05/07/2013 White Blood Count 9.3 10^3/uL 4.8-10.8 Red Blood Count 4.33 10^6/uL 4.0-5.4 Hemoglobin 13.6 g/dL 12.0-16.0 Hematocrit 40 % 35-47 Mean Corpuscular Volume 93 fL 80-97 Mean Corpuscular Hemoglobin 32 pg High 27-31 Mean Corpuscular HGB Conc 34 g/dL 31-36 Red Cell Distribution Width 12 % 10.5-15 Platelet Count 216 10^3/uL 150-450 Mean Platelet Volume 11 um3 High 7.4-10.4 Abs Neutrophils 5.8 10^3/uL 1.5-7.7 Abs Lymphocytes 2.4 10^3/uL 1.0-4.8 Abs Monocytes 0.8 10^3/uL 0-0.8 Abs Eosinophils 0.3 10^3/uL 0-0.6 Abs Basophils 0.1 10^3/uL 0-0.2 Abs Nucleated RBC 0 10^3/uL Granulocyte % 62.0 % 38-83 Lymphocyte % 26.1 % 25-47 Monocyte % 8.2 % 1-9 Eosinophil % 3.0 % 0-6 Basophil % 0.7 % 0-2 Nucleated Red Blood Cells % 0.1 Laboratory test finding 05/07/2013 Erythrocyte Sed Rate 13 mm/Hr 0-14 C Reactive Protein 0.6 mg/dL High Less than 0.5 Basic Metabolic Panel 02/23/2013 Sodium 139 mmol/L 133-145 Potassium 3.8 mmol/L 3.5-5.0 Chloride 108 mmol/L 101-111 Co2 Carbon Dioxide 23.0 mmol/L 22-32 Anion Gap 8.0 mmol/L 2-11 Glucose 136 mg/dL High 70-100 Blood Urea Nitrogen 14 mg/dL 6-24 Creatinine 0.80 mg/dL 0.50-1.40 BUN/Creatinine Ratio 17.5 8-20 Calcium 9.5 mg/dL 8.1-9.9 Egfr Non- 77.2 >60 Egfr 99.3 >60 37 Liver Function Panel 02/23/2013 Total Protein 5.8 g/dL Low 6.2-8.1 Albumin 3.8 g/dL 3.6-5.4 Globulin 2.0 g/dL 2-4 Albumin/Globulin Ratio 1.9 1-3 Total Bilirubin 0.4 mg/dL 0.4-1.5 Direct Bilirubin < 0.1 mg/dL Low 0.1-0.5 Indirect Bilirubin (SEE NOTE) mg/dL 0.3-1.0 38 Alkaline Phosphatase 58 U/L 30-110 Alt 30 U/L 14-54 Ast 24 U/L 12-42 Laboratory test 02/23/2013 C Reactive Protein < 0.5 mg/dL Less than 0.5 finding CBC With Manual Diff 02/23/2013 White Blood Count 11.0 10^3/uL High 4.8- 10.8 Red Blood Count 4.10 10^6/uL 4.0-5.4 Hemoglobin 13.2 g/dL 12.0-16.0 Hematocrit 38 % 35-47 Mean Corpuscular Volume 93 fL 80-97 Mean Corpuscular Hemoglobin 32 pg High 27-31 Mean Corpuscular HGB Conc 35 g/dL 31-36 Red Cell Distribution Width 12 % 10.5-15 Platelet Count 209 10^3/uL 150-450 Mean Platelet Volume 11 um3 High 7.4-10.4 Abs Neutrophils 6.8 10^3/uL 1.5-7.7 Abs Lymphocytes 2.7 10^3/uL 1.0-4.8 Abs Monocytes 1.0 10^3/uL High 0-0.8 Abs Eosinophils 0.3 10^3/uL 0-0.6 Abs Basophils 0.1 10^3/uL 0-0.2 Abs Nucleated RBC 0 10^3/uL Neutrophil % 59 % 38-83 Lymphocytes % 30 % 25-47 Monocytes % 9 % 0-13 Eosinophils % 1 % 0-6 Basophil % 1 % 0-2 RBC Morphology Normal Normal Laboratory test finding 02/23/2013 Erythrocyte Sed Rate 11 mm/Hr 0-14 CBC With Manual Diff 10/25/2012 White Blood Count 11.3 10^3/uL High 4.8- 10.8 Red Blood Count 4.43 10^6/uL 4.0-5.4 Hemoglobin 13.4 g/dL 12.0-16.0 Hematocrit 41 % 35-47 Mean Corpuscular Volume 93 fL 80-97 Mean Corpuscular Hemoglobin 30 pg 27-31 Mean Corpuscular HGB Conc 33 g/dL 31-36 Red Cell Distribution Width 12 % 10.5-15 Platelet Count 222 10^3/uL 150-450 Mean Platelet Volume 11 um3 High 7.4-10.4 Abs Neutrophils 6.7 10^3/uL 1.5-7.7 Abs Lymphocytes 3.3 10^3/uL 1.0-4.8 Abs Monocytes 0.9 10^3/uL High 0-0.8 Abs Eosinophils 0.4 10^3/uL 0-0.6 Abs Basophils 0.1 10^3/uL 0-0.2 Abs Nucleated RBC 0 10^3/uL Neutrophil % 58 % 38-83 Lymphocytes % 34 % 25-47 Monocytes % 4 % 0-13 Eosinophils % 4 % 0-6 RBC Morphology Normal Normal Laboratory test finding 10/25/2012 Erythrocyte Sed Rate 12 mm/Hr 0-14 Basic Metabolic Panel 10/25/2012 Sodium 138 mmol/L 133-145 Potassium 4.0 mmol/L 3.5-5.0 Chloride 104 mmol/L 101-111 Co2 Carbon Dioxide 26.0 mmol/L 22-32 Anion Gap 8.0 mmol/L 2-11 Glucose 87 mg/dL 70-100 Blood Urea Nitrogen 17 mg/dL 6-24 Creatinine 0.70 mg/dL 0.50-1.40 BUN/Creatinine Ratio 24.3 High 8-20 Calcium 9.6 mg/dL 8.1-9.9 Egfr Non- 90.1 >60 Egfr 115.9 >60 39 Laboratory test finding 10/25/2012 C Reactive Protein 0.6 mg/dL High Less than 0.5 Liver Function Panel 10/25/2012 Total Protein 6.7 g/dL 6.2-8.1 Albumin 4.2 g/dL 3.6-5.4 Globulin 2.5 g/dL 2-4 Albumin/Globulin Ratio 1.7 1-3 Total Bilirubin 0.6 mg/dL 0.4-1.5 Direct Bilirubin < 0.1 mg/dL Low 0.1-0.5 Indirect Bilirubin (SEE NOTE) mg/dL 0.3-1.0 40 Alkaline Phosphatase 50 U/L 30-110 Alt 33 U/L 14-54 Ast 24 U/L 12-42 Laboratory test finding 06/12/2012 Erythrocyte Sed Rate 10 MM/HR 0-14 CBC With Manual Diff 06/12/2012 White Blood Count 14.7 10^3/uL High 4.8- 10.8 Red Blood Count 4.15 10^6/uL 4.0-5.4 Hemoglobin 13.2 g/dL 12.0-16.0 Hematocrit 39 % 35-47 Mean Corpuscular Volume 95 fL 80-97 Mean Corpuscular Hemoglobin 32 pg High 27-31 Mean Corpuscular HGB Conc 34 g/dL 31-36 Red Cell Distribution Width 12 % 10.5-15 Platelet Count 263 10^3/uL 150-450 Mean Platelet Volume 10 um3 7.4-10.4 Abs Neutrophils 9.3 10^3/uL High 1.5-7.7 Abs Lymphocytes 4.1 10^3/uL 1.0-4.8 Abs Monocytes 0.9 10^3/uL High 0-0.8 Abs Eosinophils 0.3 10^3/uL 0-0.6 Abs Basophils 0.1 10^3/uL 0-0.2 Abs Nucleated RBC 0.01 10^3/uL Neutrophil % 53.0 % 38-83 Band % 0 % 0-8 Lymphocytes % 33.0 % 25-47 Monocytes % 10.0 % 0-13 Eosinophils % 4.0 % 0-6 Basophil % 0 % 0-2 Reactive Lymph % 0 % 0-6 Metamyelocytes % 0 % 0-2 Myelocytes % 0 % 0-1 Promyelocytes % 0 % Blast % 0 % RBC Morphology Normal Normal Laboratory test finding 06/12/2012 C Reactive Protein 0.7 mg/dL High Less Than 0.5 Liver Function Panel 06/12/2012 Total Protein 6.3 GM/DL 6.2-8.1 Albumin 3.8 GM/DL 3.6-5.4 Globulin 2.5 GM/DL 2-4 Albumin/Globulin Ratio 1.5 1-3 Total Bilirubin 0.6 mg/dL 0.1-1.0 41 Direct Bilirubin 0.1 mg/dL 0.1-0.5 Indirect Bilirubin 0.5 mg/dL 0.3-1.0 Alkaline Phosphatase 63 U/L 30-110 Alt 62 U/L High 14-54 Ast 32 U/L 12-42 Basic Metabolic Panel 06/12/2012 Sodium 137 mmol/L 133-145 Potassium 3.7 mmol/L 3.5-5.0 Chloride 103 mmol/L 101-111 Co2 Carbon Dioxide 26.0 mmol/L 22-32 Anion Gap 8.0 mmol/L 2-11 Glucose 159 mg/dL High 70-100 Blood Urea Nitrogen 22 mg/dL 6-24 Creatinine 0.90 mg/dL 0.50-1.40 BUN/Creatinine Ratio 24.4 High 8-20 Calcium 9.4 mg/dL 8.1-9.9 Egfr Non- 67.7 >60 Egfr 87.1 >60 42 Liver Function Panel 03/29/2012 Total Protein 6.4 GM/DL 6.2-8.1 Albumin 3.8 GM/DL 3.6-5.4 Globulin 2.6 GM/DL 2-4 Albumin/Globulin Ratio 1.5 1-3 Bilirubin Total 0.6 mg/dL 0.4-1.5 43 Bilirubin Direct 0.0 mg/dL Low 0.1-0.5 Indirect Bilirubin (SEE NOTE) mg/dL 0.3-1.0 44 Alkaline Phosphatase 59 U/L 30-110 Alt (SGPT) 38 U/L 14-54 Ast (Sgot) 33 U/L 12-42 CBC With Manual Diff 03/29/2012 White Blood Count 10.1 CUMM 4.8-10.8 Red Cell Count 4.04 CUMM Low 4.2-5.4 Hemoglobin 13.3 g/dL 12.0-16.0 Hematocrit 38 % 35-47 Mean Corpuscular Volume 94 um3 79-97 Mean Corpuscular Hemoglob 33 pg High 27-31 Mean Corpuscular HGB Cone 35 g/dL 32-36 Redcell Distribution WDTH 12 % 10.5-15 Platelet Count 198 CUMM 150-450 Mean Platelet Volume 11.1 um3 High 7.4-10.4 Absolute Neutrophil Count 5.6 1.5-7.7 Polysegmented Neutrophil 80 % 38-83 Band Neutrophil 2 % 0-8 Lymphocyte 8 % Low 25-47 Monocyte 7 % 0-13 Eosinophil 2 % 0-6 Basophil 1 % 0-2 Anisocytosis SLIGHT Platelet Evaluation LARGE Laboratory test finding 03/29/2012 Erythrocyte Sed Rate 10 MM/HR 0-15 C Reactive Protein 0.5 mg/dL Less Than 0.5 Basic Metabolic Panel 03/29/2012 Sodium 134 mmol/L Low 135-145 Potassium 4.1 mmol/L 3.5-5.0 Chloride 108 mmol/L 101-111 Co2 (Carbon Dioxide) 21.0 mmol/L Low 22-32 Anion Gap 5.0 mmol/L 2-11 45 Glucose 84 mg/dL 70-100 BUN 14 mg/dL 6-24 Creatinine 0.6 mg/dL 0.50-1.40 One Over Creatinine 1.66 BUN/Creatinine Ratio 23.3 High 8-20 Calcium 9.1 mg/dL 8.1-9.9 eGFR Non- 108.1 > 60 eGFR 139.0 > 60 46 1 Because ethnic data is not always readily available, this report includes an eGFR for both -Americans and non- Americans. The National Kidney Disease Education Program (NKDEP) does not endorse the use of the MDRD equation for patients that are not between the ages of 18 and 70, are , have extremes of body size, muscle mass, or nutritional status, or are non- or non-. According to the National [employer], irrespective of diagnosis, the stage of the disease is based on the level of kidney function: Stage Description GFR(mL/min/1.73 m(2)) 1 Kidney damage with normal or decreased GFR 90 2 Kidney damage with mild decrease in GFR 60-89 3 Moderate decrease in GFR 30-59 4 Severe decrease in GFR 15-29 5 Kidney failure <15 (or dialysis) 2 ORDERED:12/02/17 ENTERED:12/15/17 :06/03/18 S/O Q 8 WEEKS OR DIRECTED 3 OR DERED:12/02/17 ENTERED:12/15/17 :06/03/18 S/O Q 8 WEEKS OR DIRECTED 4 Because ethnic data is not always readily available, this report includes an eGFR for both -Americans and non- Americans. The National Kidney Disease Education Program (NKDEP) does not endorse the use of the MDRD equation for patients that are not between the ages of 18 and 70, are , have extremes of body size, muscle mass, or nutritional status, or are non- or non-. According to the National [employer], irrespective of diagnosis, the stage of the disease is based on the level of kidney function: Stage Description GFR(mL/min/1.73 m(2)) 1 Kidney damage with normal or decreased GFR 90 2 Kidney damage with mild decrease in GFR 60-89 3 Moderate decrease in GFR 30-59 4 Severe decrease in GFR 15-29 5 Kidney failure <15 (or dialysis) 5 Acute inflammation: >10.00 6 PRN 02/11/17-08/13/17 7 hx of fatty liver 8 Because ethnic data is not always readily available, this report includes an eGFR for both -Americans and non- Americans. The National Kidney Disease Education Program (NKDEP) does not endorse the use of the MDRD equation for patients that are not between the ages of 18 and 70, are , have extremes of body size, muscle mass, or nutritional status, or are non- or non-. According to the National [employer], irrespective of diagnosis, the stage of the disease is based on the level of kidney function: Stage Description GFR(mL/min/1.73 m(2)) 1 Kidney damage with normal or decreased GFR 90 2 Kidney damage with mild decrease in GFR 60-89 3 Moderate decrease in GFR 30-59 4 Severe decrease in GFR 15-29 5 Kidney failure <15 (or dialysis) 9 Acute inflammation: >10.00 10 standing order q 8 weeks or as directed 11 Because ethnic data is not always readily available, this report includes an eGFR for both -Americans and non- Americans. The National Kidney Disease Education Program (NKDEP) does not endorse the use of the MDRD equation for patients that are not between the ages of 18 and 70, are , have extremes of body size, muscle mass, or nutritional status, or are non- or non-. According to the National Kid[employer], irrespective of diagnosis, the stage of the disease is based on the level of kidney function: Stage Description GFR(mL/min/1.73 m(2)) 1 Kidney damage with normal or decreased GFR 90 2 Kidney damage with mild decrease in GFR 60-89 3 Moderate decrease in GFR 30-59 4 Severe decrease in GFR 15-29 5 Kidney failure <15 (or dialysis) 12 Acute inflammation: >10.00 13 ORDERED 09/02/16 EXPIRES 03/02/17 14 Because ethnic data is not always readily available, this report includes an eGFR for both -Americans and non- Americans. The National Kidney Disease Education Program (NKDEP) does not endorse the use of the MDRD equation for patients that are not between the ages of 18 and 70, are , have extremes of body size, muscle mass, or nutritional status, or are non- or non-. According to the National Kid[employer], irrespective of diagnosis, the stage of the disease is based on the level of kidney function: Stage Description GFR(mL/min/1.73 m(2)) 1 Kidney damage with normal or decreased GFR 90 2 Kidney damage with mild decrease in GFR 60-89 3 Moderate decrease in GFR 30-59 4 Severe decrease in GFR 15-29 5 Kidney failure <15 (or dialysis) 15 Acute inflammation: >10.00 16 standing order q 8 weeks or as directed 17 Because ethnic data is not always readily available, this report includes an eGFR for both -Americans and non- Americans. The National Kidney Disease Education Program (NKDEP) does not endorse the use of the MDRD equation for patients that are not between the ages of 18 and 70, are , have extremes of body size, muscle mass, or nutritional status, or are non- or non-. According to the National Kid[employer], irrespective of diagnosis, the stage of the disease is based on the level of kidney function: Stage Description GFR(mL/min/1.73 m(2)) 1 Kidney damage with normal or decreased GFR 90 2 Kidney damage with mild decrease in GFR 60-89 3 Moderate decrease in GFR 30-59 4 Severe decrease in GFR 15-29 5 Kidney failure <15 (or dialysis) 18 Acute inflammation: >10.00 19 STANDING ORDER VALID 12/24/15-06/24/16 NON-FASTING 20 Because ethnic data is not always readily available, this report includes an eGFR for both -Americans and non- Americans. The National Kidney Disease Education Program (NKDEP) does not endorse the use of the MDRD equation for patients that are not between the ages of 18 and 70, are , have extremes of body size, muscle mass, or nutritional status, or are non- or non-. According to the National [employer], irrespective of diagnosis, the stage of the disease is based on the level of kidney function: Stage Description GFR(mL/min/1.73 m(2)) 1 Kidney damage with normal or decreased GFR 90 2 Kidney damage with mild decrease in GFR 60-89 3 Moderate decrease in GFR 30-59 4 Severe decrease in GFR 15-29 5 Kidney failure <15 (or dialysis) 21 Acute inflammation: >10.00 22 Because ethnic data is not always readily available, this report includes an eGFR for both -Americans and non- Americans. The National Kid[employer] Disease Education Program (NKDEP) does not endorse the use of the MDRD equation for patients that are not between the ages of 18 and 70, are , have extremes of body size, muscle mass, or nutritional status, or are non- or non-. According to the National [employer], irrespective of diagnosis, the stage of the disease is based on the level of kidney function: Stage Description GFR(mL/min/1.73 m(2)) 1 Kidney damage with normal or decreased GFR 90 2 Kidney damage with mild decrease in GFR 60-89 3 Moderate decrease in GFR 30-59 4 Severe decrease in GFR 15-29 5 Kidney failure <15 (or dialysis) 23 Acute inflammation: >10.00 24 Because ethnic data is not always readily available, this report includes an eGFR for both -Americans and non- Americans. The National Kid[employer] Disease Education Program (NKDEP) does not endorse the use of the MDRD equation for patients that are not between the ages of 18 and 70, are , have extremes of body size, muscle mass, or nutritional status, or are non- or non-. According to the National [employer], irrespective of diagnosis, the stage of the disease is based on the level of kidney function: Stage Description GFR(mL/min/1.73 m(2)) 1 Kidney damage with normal or decreased GFR 90 2 Kidney damage with mild decrease in GFR 60-89 3 Moderate decrease in GFR 30-59 4 Severe decrease in GFR 15-29 5 Kidney failure <15 (or dialysis) 25 Acute inflammation: >10.00 26 Slightly elevated ALT hepatic US 2010 with fatty liver. Not on [place]. Takes nabumetone bid. Will monitor for now. 27 Because ethnic data is not always readily available, this report includes an eGFR for both -Americans and non- Americans. The National Kidney Disease Education Program (NKDEP) does not endorse the use of the MDRD equation for patients that are not between the ages of 18 and 70, are , have extremes of body size, muscle mass, or nutritional status, or are non- or non-. According to the [employer], irrespective of diagnosis, the stage of the disease is based on the level of kidney function: Stage Description GFR(mL/min/1.73 m(2)) 1 Kidney damage with normal or decreased GFR 90 2 Kidney damage with mild decrease in GFR 60-89 3 Moderate decrease in GFR 30-59 4 Severe decrease in GFR 15-29 5 Kidney failure <15 (or dialysis) 28 Acute inflammation: >10.00 29 Because ethnic data is not always readily available, this report includes an eGFR for both -Americans and non- Americans. The National Kidney Disease Education Program (NKDEP) does not endorse the use of the MDRD equation for patients that are not between the ages of 18 and 70, are , have extremes of body size, muscle mass, or nutritional status, or are non- or non-. According to the National Kidney Foundation, irrespective of diagnosis, the stage of the disease is based on the level of kidney function: Stage Description GFR(mL/min/1.73 m(2)) 1 Kidney damage with normal or decreased GFR 90 2 Kidney damage with mild decrease in GFR 60-89 3 Moderate decrease in GFR 30-59 4 Severe decrease in GFR 15-29 5 Kidney failure <15 (or dialysis) 30 Low risk: <1.00 Average risk: 1.00-3.00 High risk: >3.00 31 Because ethnic data is not always readily available, this report includes an eGFR for both -Americans and non- Americans. The National Kidney Disease Education Program (NKDEP) does not endorse the use of the MDRD equation for patients that are not between the ages of 18 and 70, are , have extremes of body size, muscle mass, or nutritional status, or are non- or non-. According to the National Kidney Foundation, irrespective of diagnosis, the stage of the disease is based on the level of kidney function: Stage Description GFR(mL/min/1.73 m(2)) 1 Kidney damage with normal or decreased GFR 90 2 Kidney damage with mild decrease in GFR 60-89 3 Moderate decrease in GFR 30-59 4 Severe decrease in GFR 15-29 5 Kidney failure <15 (or dialysis) 32 Acute inflammation: >10.00 33 Because ethnic data is not always readily available, this report includes an eGFR for both -Americans and non- Americans. The National Kidney Disease Education Program (NKDEP) does not endorse the use of the MDRD equation for patients that are not between the ages of 18 and 70, are , have extremes of body size, muscle mass, or nutritional status, or are non- or non-. According to the National Kidney Foundation, irrespective of diagnosis, the stage of the disease is based on the level of kidney function: Stage Description GFR(mL/min/1.73 m(2)) 1 Kidney damage with normal or decreased GFR 90 2 Kidney damage with mild decrease in GFR 60-89 3 Moderate decrease in GFR 30-59 4 Severe decrease in GFR 15-29 5 Kidney failure <15 (or dialysis) 34 Acute inflammation: >10.00 35 Because ethnic data is not always readily available, this report includes an eGFR for both -Americans and non- Americans. The National Kidney Disease Education Program (NKDEP) does not endorse the use of the MDRD equation for patients that are not between the ages of 18 and 70, are , have extremes of body size, muscle mass, or nutritional status, or are non- or non-. According to the National Kidney Foundation, irrespective of diagnosis, the stage of the disease is based on the level of kidney function: Stage Description GFR(mL/min/1.73 m(2)) 1 Kidney damage with normal or decreased GFR 90 2 Kidney damage with mild decrease in GFR 60-89 3 Moderate decrease in GFR 30-59 4 Severe decrease in GFR 15-29 5 Kidney failure <15 (or dialysis) 36 Because ethnic data is not always readily available, this report includes an eGFR for both -Americans and non- Americans. The National Kidney Disease Education Program (NKDEP) does not endorse the use of the MDRD equation for patients that are not between the ages of 18 and 70, are , have extremes of body size, muscle mass, or nutritional status, or are non- or non-. According to the National Kidney Foundation, irrespective of diagnosis, the stage of the disease is based on the level of kidney function: Stage Description GFR(mL/min/1.73 m(2)) 1 Kidney damage with normal or decreased GFR 90 2 Kidney damage with mild decrease in GFR 60-89 3 Moderate decrease in GFR 30-59 4 Severe decrease in GFR 15-29 5 Kidney failure <15 (or dialysis) 37 Because ethnic data is not always readily available, this report includes an eGFR for both -Americans and non- Americans. The National Kidney Disease Education Program (NKDEP) does not endorse the use of the MDRD equation for patients that are not between the ages of 18 and 70, are , have extremes of body size, muscle mass, or nutritional status, or are non- or non-. According to the National Kidney Foundation, irrespective of diagnosis, the stage of the disease is based on the level of kidney function: Stage Description GFR(mL/min/1.73 m(2)) 1 Kidney damage with normal or decreased GFR 90 2 Kidney damage with mild decrease in GFR 60-89 3 Moderate decrease in GFR 30-59 4 Severe decrease in GFR 15-29 5 Kidney failure <15 (or dialysis) 38 Unable to calculate Ind Bili as D Bili is <0.1 Unable to calculate Ind Bili as D Bili is <0.1 39 Because ethnic data is not always readily available, this report includes an eGFR for both -Americans and non- Americans. The National Kidney Disease Education Program (NKDEP) does not endorse the use of the MDRD equation for patients that are not between the ages of 18 and 70, are , have extremes of body size, muscle mass, or nutritional status, or are non- or non-. According to the National Kidney Foundation, irrespective of diagnosis, the stage of the disease is based on the level of kidney function: Stage Description GFR(mL/min/1.73 m(2)) 1 Kidney damage with normal or decreased GFR 90 2 Kidney damage with mild decrease in GFR 60-89 3 Moderate decrease in GFR 30-59 4 Severe decrease in GFR 15-29 5 Kidney failure <15 (or dialysis) 40 UNABLE TO CALCULATE IND.BILI D.BILI IS <0.1 41 A metabolite of Naproxen, O-desmethylnaproxen, has been shown to interfere with the Jendrassik-Geovanna method for measuring total bilirubin. Samples from patients who have taken Naproxen have shown spurious elevation in total bilirubin levels. 42 Because ethnic data is not always readily available, this report includes an eGFR for both -Americans and non- Americans. The National Kidney Disease Education Program (NKDEP) does not endorse the use of the MDRD equation for patients that are not between the ages of 18 and 70, are , have extremes of body size, muscle mass, or nutritional status, or are non- or non-. According to the National Kidney Foundation, irrespective of diagnosis, the stage of the disease is based on the level of kidney function: Stage Description GFR(mL/min/1.73 m(2)) 1 Kidney damage with normal or decreased GFR 90 2 Kidney damage with mild decrease in GFR 60-89 3 Moderate decrease in GFR 30-59 4 Severe decrease in GFR 15-29 5 Kidney failure <15 (or dialysis) 43 A metabolite of Naproxen, O-desmethylnaproxen, has been shown to interfere with the Jendrassik-Geovanna method for measuring total bilirubin. Samples from patients who have taken Naproxen have shown spurious elevation in total bilirubin levels. 44 UNABLE TO CALCULATE IND.BILI D.BILI IS <0.1 Please note updated reference range, effective 03/19/10 45 Anion gap measurement may be of limited value in the presence of any alkalosis, especially in a combined acid base disorder. . 46 Because ethnic data is not always readily available, this report includes an eGFR for both -Americans and non- Americans. The National Kidney Disease Education Program (NKDEP) does not endorse the use of the MDRD equation for patients that are not between the ages of 18 and 70, are , have extremes of body size, muscle mass, or nutritional status, or are non- or non-. According to the National Kidney Foundation, irrespective of diagnosis, the stage of the disease is based on the level of kidney function: Stage Description GFR(mL/min/1.73 m(2)) 1 Kidney damage with normal or decreased GFR 90 2 Kidney damage with mild decrease in GFR 60-89 3 Moderate decrease in GFR 30-59 4 Severe decrease in GFR 15-29 5 Kidney failure <15 (or dialysis) Procedures Description No Information Encounters Type Date Location Provider CPT E/M Dx Office Visit 05/17/2017 [facility] EBTY Tilley [address]60 M05.79 3:00p [facility] R79.89 F17.210 Z79.899 R74.0 Office Visit 02/11/2017 3:00p [facility] BETY Tilley 39276 M05.79 [employer] Z79.899 M25.512 F17.210 Office Visit 09/21/2016 3:30p [facility] Loreta Adams, GERIATRICS PHYSICIAN 26776 M05.79 [employer] R79.89 Z79.899 F17.210 Z23 Office Visit 04/30/2016 3:30p [facility] Loreta Adams, GERIATRICS PHYSICIAN 36521 M05.79 [facility] [employer] Z79.899 Office Visit 01/27/2016 3:00p [facility] Loreta Adams, GERIATRICS PHYSICIAN 87165 M05.79 [facility] [employer] B37.2 Z79.899 Office Visit 09/22/2015 3:00p [facility] Loreta Adams, GERIATRICS PHYSICIAN 96426 M05.79 [facility] [employer] Z79.899 Office Visit 06/23/2015 3:00p [facility] Loreta Adams, GERIATRICS PHYSICIAN 38575 M05.79 [facility] [employer] Z79.899 L28.0 Office Visit 03/21/2015 2:00p [facility] Of Loreta Adams, GERIATRICS PHYSICIAN 56187 714.0 [employer] V58.69 305.1 Office Visit 12/18/2014 4:00p [facility] Of Loreta Adams, GERIATRICS PHYSICIAN 40287 714.0 [employer] V58.69 305.1 V03.82 Office Visit 08/23/2014 2:00p [facility] Of Loreta Adams, GERIATRICS PHYSICIAN 80223 714.0 [employer] 790.6 V58.69 305.1 V04.81 V03.82 V06.6 794.8 Office Visit 06/13/2014 9:00a [facility] Of Loreta Adams, GERIATRICS PHYSICIAN 37784 714.0 [employer] 465.9 V58.69 338.4 Office Visit 04/30/2014 4:00p [facility] Of Loreta Adams, GERIATRICS PHYSICIAN 10825 714.0 [employer] 338.4 V58.69 Office Visit 12/20/2013 2:00p [facility] Of Loreta Adams, GERIATRICS PHYSICIAN 34323 714.0 [employer] V58.69 Office Visit 08/23/2013 2:20p [facility] Of Loreta Adams GERIATRICS PHYSICIAN 90943 714.0 [employer] V58.69 466.0 Office Visit 05/30/2013 3:00p [facility] Of Loreta Adams, GERIATRICS PHYSICIAN 13469 714.0 [employer] 338.4 V58.69 466.0 112.0 Office Visit 03/05/2013 2:40p [facility] Of Loreta Adams, GERIATRICS PHYSICIAN 02900 714.0 [employer] 338.4 V58.69 Office Visit 10/23/2012 2:00p [facility] Of BETY Tilley 69440 714.0 [employer] 338.4 V58.69 Office Visit 06/09/2012 2:00p [facility] Josemanuel Jonas M.D. 18707 714.0 Of [employer] V58.69 338.4 Office Visit 01/27/2012 4:00p [facility] Josemanuel Jonas M.D. 59454 714.0 [employer] V58.69 Office Visit 10/26/2011 4:20p [facility] Josemanuel Jonas M.D. 88506 714.0 [employer] V58.69 Office Visit 07/15/2011 3:40p [facility] Josemanuel Jonas M.D. 33854 714.0 [employer] V58.69 790.6 Office Visit 04/13/2011 3:40p [facility] Josemanuel Jonas M.D. 36666 714.0 [employer] V58.69 790.6 Office Visit 02/22/2011 3:40p [facility] Josemanuel Jonas M.D. 01991 714.0 [employer] V58.69 790.6 Office Visit 12/28/2010 3:20p [facility] Josemanuel Jonas M.D. 91936 714.0 [employer] V58.69 Office Visit 11/05/2010 3:20p [facility] Josemanuel Jonas M.D. 06326 714.0 [employer] V58.69 Plan of Care Future Appointment(s):08/07/2018 3:30 pm - BETY Tilley at [facility]06/05/2018 - LIVIA TilleyPM05.79 Rheu arthritis w rheu factor mult site w/o org/sys involvComments:Please, start back on Enbrel.Continue with regular blood tests. You will need to have a blood test done about a week prior to your next appointment. You have a standing lab order on file. Refills will be sent to your pharmacy.Please call the office if you develop any sign or symptoms of infection or acute change in your health.Follow up:2 month labs jismoG03.210 Nicotine dependence, cigarettes, uncomplicatedComments:Aas we discussed you need to stop [id number] Other halfway (current) drug therapyComments:Please get the flu vaccine
[2018-06-26 08:37] VITALS: BP 121/94
--- NOTE | 2018-06-26 08:49 | ED ---
Skin Complaint - HPI Summary HPI Summary: 52 yr old with the complaint of left rib pain, rash. Onset of pain a week ago and sharp, burning and since yesterday she has developed a rash on red base with blisters. Dermatome distribution, and vesicles present. No fever chills , and doesn't feel ill. She has RA and is on meds. - History of Current Complaint Chief Complaint: UCRash Time Seen by Provider: 06/26/18 08:36 Stated Complaint: RASH Hx Last Menstrual Period: MARCH, PERIODS ARE IRREG Pain Intensity: 7 - Allergy/Home Medications Allergies/Adverse Reactions: Allergies Allergy/AdvReac Type Severity Reaction Status Date / Time Sulfa (Sulfonamide Allergy Intermediate Hives Verified 06/26/18 08:25 Antibiotics) methotrexate Allergy Unknown adverse Verified 06/26/18 08:25 liver reaction and nausea Home Medications: Home Medications Omeprazole CAP* [Prilosec CAP* 20 MG] 20 mg PO DAILY 06/26/18 [History Confirmed 06/26/18] predniSONE TAB* [Deltasone TAB*] 10 mg PO DAILY 06/26/18 [History Confirmed ] PMH/Surg Hx/FS Hx/Imm Hx Endocrine/Hematology History: Denies: Hx Diabetes, Hx Thyroid Disease Cardiovascular History: Denies: Hx Hypertension Respiratory History: Reports: Hx Asthma Denies: Hx Chronic Obstructive Pulmonary Disease (COPD) GI History: Denies: Hx Ulcer - Surgical History Surgery Procedure, Year, and Place: 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 TUBAL LIGATION Infectious Disease History: No Infectious Disease History: Denies: Hx Clostridium Difficile, Hx Hepatitis, Hx Human Immunodeficiency Virus (HIV), Hx of Known/Suspected MRSA, Hx Shingles, Hx Tuberculosis, Hx Known/ Suspected VRE, Hx Known/Suspected VRSA, History Other Infectious Disease, Traveled Outside the [place] in Last 30 Days - Family History Known Family History: Positive: Hypertension - Social History Occupation: Employed Full-time Alcohol Use: Occasionally Substance Use Type: Reports: None Smoking Status (MU): Heavy Every Day Tobacco Smoker Type: Cigarettes Amount Used/How Often: 1/2 PPD Review of Systems Constitutional: Negative Positive: Rash All Other Systems Reviewed And Are Negative: Yes Physical Exam Triage Information Reviewed: Yes Vital Signs On Initial Exam: Initial Vitals Temp Pulse Resp BP Pulse Ox 98.4 F 80 16 121/94 100 06/26/18 08:29 06/26/18 08:29 06/26/18 08:29 06/26/18 08:29 06/26/18 08:29 Vital Signs Reviewed: Yes Appearance: Positive: Well-Appearing, No Pain Distress Skin: Positive: Other - rash that has red base in patches with vesicles along the T-8 dermatome left side only. Head/Face: Positive: Normal Head/Face Inspection Eyes: Positive: EOMI ENT: Positive: Normal ENT inspection Neck: Positive: Nontender Respiratory/Lung Sounds: Positive: Clear to Auscultation, Breath Sounds Present Cardiovascular: Positive: RRR. Negative: Murmur Abdomen Description: Positive: Nontender Musculoskeletal: Positive: Strength/ROM Intact Neurological: Positive: Sensory/Motor Intact, Alert, Oriented to Person Place, Time, CN Intact II-III Psychiatric: Positive: Normal - Lowman Coma Scale Best Eye Response: 4 - Spontaneous Best Motor Response: 6 - Obeys Commands Best Verbal Response: 5 - Oriented Coma Scale Total: 15 Diagnostics - Vital Signs Vital Signs Temp Pulse Resp BP Pulse Ox 06/26/18 08:29 98.4 F 80 16 121/94 100 - Laboratory Lab Statement: Any lab studies that have been ordered have been reviewed, and results considered in the medical decision making process. Course/Dx - Course Course Of Treatment: 52 yr old female with shingles rash left side of trunk. Plan DC home. Valtrex. Follow up with PMD at [facility]. - Diagnoses Provider Diagnoses: Shingles Discharge - Sign-Out/Discharge Documenting (check all that apply): Patient Departure All imaging exams completed and their final reports reviewed: No Studies - Discharge Plan Condition: Good Disposition: HOME Prescriptions: ValACYclovir (*) [Valtrex 1 GM(*)] 1 gm PO TID #21 tab Patient Education Materials: Shingles (ED), Hypertension (ED) Forms: *Work Release Referrals: Lu Blake MD [Primary Care Provider] - 3 Days - Billing Disposition and Condition Condition: GOOD Disposition: Home
== END 2018-06-26 08:52 | disposition home or self-care (01) ==
LOC: UCCORT 08:06
DX: B02.9 Zoster without complications (principal); F17.210 Nicotine dependence, cigarettes, uncomplicated; Z88.2 Allergy status to sulfonamides; Z88.8 Allergy status to other drugs, medicaments and biological substances
CPT/HCPCS: 99202; G0463